=== PATIENT | male | born 1955 | race Caucasian/White ===

== ENCOUNTER 2017-03-28 19:29 | Emergency (ER) | payer BC ==
[~2017-03-28] VITALS: Ht 182.9 cm; Wt 78.2 kg
[2017-03-28 19:40] VITALS: BP 141/76; PULSE 116; RESP 20; TEMP 97.7; O2SAT 97
[2017-03-28] MEDS ORDERED: SODIUM CHLOR 0.9% 1000 ML INJ 1,000 ML IV SCH (20:00)
--- NOTE | 2017-03-28 20:04 | PD ---
HPI Chief Complaint: Fall Time Seen by Provider: 19:46 Travel History International Travel<30 days: No Contact w/Intl Traveler<30days: No Traveled to known affect area: No History of Present Illness HPI This 62-year-old male is complaining of RIGHT flank pain. He says that he had a fall on Saturday where he fell backwards and hit the area toilet. He has been having pain since then. Pain is quite severe. It is aggravated by movement. He thinks he did notice some dark urine right after the injury. He has a history of atrial fibrillation and is on Eliquis and amiodarone. The pain is aggravated by breathing as well as movement. The pain is quite severe PFSH Past Medical History Hx Anticoagulant Therapy: Yes Cardiovascular Problems: Yes (a- fib) Diminished Hearing: No Immunizations Current: Yes Tetanus Vaccination: Unknown Influenza Vaccination: No Social History Alcohol Use: Yes Tobacco Use: No Substance Use: No Allergies-Medications (Allergen,Severity, Reaction): Coded Allergies: No Known Allergies (Unverified , 03/28/17) Reported Meds & Prescriptions Reported Meds & Active Scripts Active Reported Diltiazem (Diltiazem HCl) 30 Mg Tab 30 Mg PO DAILY Metoprolol Succinate ER 24 HR (Metoprolol Succinate) 25 Mg Tab 12.5 Mg PO BID Amiodarone (Amiodarone HCl) 100 Mg Tab 50 Mg PO DAILY Eliquis (Apixaban) 5 Mg Tab 5 Mg PO BID Review of Systems General / Constitutional: No: Fever, Chills Eyes: No: Diploplia, Blurred Vision HENT: No: Headaches, Vertigo Cardiovascular: No: Chest Pain or Discomfort, Palpitations Respiratory: Positive: Shortness of Breath, No: Cough Gastrointestinal: No: Nausea, Vomiting Genitourinary: Positive: Hematuria, Flank Pain Musculoskeletal: No: Myalgias Skin: No Rash Neurologic: No: Weakness Physical Exam Narrative GENERAL: Well-developed male. He is quite uncomfortable with this pain SKIN: Focused skin assessment warm/dry. HEAD: Atraumatic. Normocephalic. EYES: Pupils equal and round. No scleral icterus. No injection or drainage. ENT: No nasal bleeding or discharge. Mucous membranes pink and moist. NECK: Trachea midline. No JVD. CARDIOVASCULAR: Regular rate and rhythm. No murmur appreciated. RESPIRATORY: No accessory muscle use. Clear to auscultation. Breath sounds equal bilaterally. There is tenderness in the right lower ribs GASTROINTESTINAL: Abdomen soft, non-tender, nondistended. Hepatic and splenic margins not palpable. (There is tenderness in the right flank area. There is no midline back tenderness MUSCULOSKELETAL: No obvious deformities. No clubbing. No cyanosis. No edema. NEUROLOGICAL: Awake and alert. No obvious cranial nerve deficits. Motor grossly within normal limits. Normal speech. PSYCHIATRIC: Appropriate mood and affect; insight and judgment normal. Data Data Last Documented VS Vital Signs Date Time Temp Pulse Resp B/P Pulse Ox O2 Delivery O2 Flow Rate FiO2 03/28/17 21:11 106 18 140/84 97 Room Air 03/28/17 19:40 97.7 Orders Complete Blood Count With Diff (03/28/17 19:56) Basic Metabolic Panel (Bmp) (03/28/17 19:56) Urinalysis - C+S If Indicated (03/28/17 19:56) Chest, Single Ap (03/28/17 19:56) Ct Abd/Pel W Iv Contrast(Rout) (03/28/17 19:56) Sodium Chlor 0.9% 1000 Ml Inj (Ns 1000 M (03/28/17 20:00) Labs Laboratory Tests Test 03/28/17 20:20 White Blood Count 8.4 TH/MM3 Red Blood Count 4.60 MIL/MM3 Hemoglobin 15.5 GM/DL Hematocrit 46.4 % Mean Corpuscular Volume 101.1 FL Mean Corpuscular Hemoglobin 33.6 PG Mean Corpuscular Hemoglobin 33.3 % Concent Red Cell Distribution Width 12.2 % Platelet Count 188 TH/MM3 Mean Platelet Volume 8.1 FL Neutrophils (%) (Auto) 75.1 % Lymphocytes (%) (Auto) 14.5 % Monocytes (%) (Auto) 9.1 % Eosinophils (%) (Auto) 0.8 % Basophils (%) (Auto) 0.5 % Neutrophils # (Auto) 6.3 TH/MM3 Lymphocytes # (Auto) 1.2 TH/MM3 Monocytes # (Auto) 0.8 TH/MM3 Eosinophils # (Auto) 0.1 TH/MM3 Basophils # (Auto) 0.0 TH/MM3 CBC Comment DIFF FINAL Differential Comment Sodium Level 139 MEQ/L Potassium Level 4.3 MEQ/L Chloride Level 101 MEQ/L Carbon Dioxide Level 26.5 MEQ/L Anion Gap 12 MEQ/L Blood Urea Nitrogen 17 MG/DL Creatinine 1.60 MG/DL Estimat Glomerular Filtration 44 ML/MIN Rate Random Glucose 183 MG/DL Calcium Level 9.5 MG/DL [facility] Medical Decision Making Medical Screen Exam Complete: Yes Emergency Medical Condition: Yes Medical Record Reviewed: Yes Differential Diagnosis Differential includes chest wall contusion, rib fracture, renal injury Narrative Course Chest x-ray was read as negative. I did order a CT abdomen and pelvis to assess for possible renal injury. On the CT I do see a fracture of the medial aspect of the right 11th rib. Patient will be released with prescription for Lortab Diagnosis Primary Impression: Fracture, rib Qualified Code: S22.31XA - Closed fracture of one rib of right side, initial encounter Scripts Hydrocodone-Acetaminophen (Lortab)7.5-325 Mg Tab1 Tab PO Q4H PRN (PAIN) #30 TAB Ref 0 Prov:Ike Zacarias MD 03/28/17 Disposition: 01 DISCHARGE HOME Condition: Stable Ike Zacarias MD March 28, 2017 20:04
[2017-03-28 20:25] LABS: AUTOMATED NEUTROPHIL # 6.3 TH/MM3 (1.8-7.7); BASOPHIL % 0.5 % (0.0-2.0); EOSINOPHIL # 0.1 TH/MM3 (0-0.4); EOSINOPHIL % 0.8 % (0.0-4.0); HEMATOCRIT 46.4 % (39.0-51.0); LYMPH % 14.5 % (9.0-44.0); LYMPHOCYTE # 1.2 TH/MM3 (1.0-4.8); MEAN CELL VOLUME 101.1 FL (80.0-100.0); MEAN CORPUSCULAR HEMOGLOBIN 33.6 PG (27.0-34.0); MEAN CORPUSCULAR HGB CONC 33.3 % (32.0-36.0); MONO % 9.1 % (0.0-8.0); NEUT % 75.1 % (16.0-70.0); PLATELET COUNT 188 TH/MM3 (150-450); RED CELL DISTRIBUTION WIDTH 12.2 % (11.6-17.2); WHITE BLOOD COUNT 8.4 TH/MM3 (4.0-11.0)
--- NOTE | 2017-03-28 20:30 | RADHPO ---
EXAM DATE/TIME: 03/28/2017 20:08 [facility] COMPARISON: No previous studies available for comparison. INDICATIONS : Patient fell getting out of the shower on Saturday and has had right lower rib pain since. He also sta stefania he has been short of breath and urinating blood. MEDICAL HISTORY : None. SURGICAL HISTORY : None. ENCOUNTER: Initial ACUITY: 2 days PAIN SCORE: 9/10 LOCATION: Right Ribs. FINDINGS: A single view of the chest demonstrates the lungs to be symmetrically aerated without evidence of mas s, infiltrate or effusion. The cardiomediastinal contours are unremarkable. Osseous structures are intact. CONCLUSION: No acute disease. Catracho Bryan MD on March 28, 2017 at 20:27 Board Certified Radiologist. This report was verified electronically.
[2017-03-28 20:33] LABS: HEMO FLAGS DIFF FINAL; POTASSIUM 4.3 MEQ/L (3.5-5.1)
[2017-03-28] MEDS ORDERED: APIX5TAB PO (20:33)
[2017-03-28] MEDS ORDERED: AMIO0.1T PO (20:33)
[2017-03-28] MEDS ORDERED: METO25TA6 PO (20:33)
[2017-03-28] MEDS ORDERED: DILT30TA PO (20:33)
[2017-03-28 20:36] LABS: BICARBONATE 26.5 MEQ/L (21.0-32.0)
[2017-03-28 21:11] VITALS: BP 140/84; PULSE 106; RESP 18; O2SAT 97
--- NOTE | 2017-03-28 21:23 | RADHPO ---
EXAM DATE/TIME: 03/28/2017 20:53 [facility] COMPARISON: No previous studies available for comparison. INDICATIONS : Fall two days ago. Right sided flank pain since. IV CONTRAST: 95 cc Omnipaque 350 (iohexol) IV ORAL CONTRAST: No oral contrast ingested. RADIATION DOSE: 11.68 CTDIvol (mGy) MEDICAL HISTORY : A-fib. SURGICAL HISTORY : None. ENCOUNTER: Initial ACUITY: 2 days PAIN SCALE: 7/10 LOCATION: Right flank TECHNIQUE: Volumetric scanning of the abdomen and pelvis was performed. Using automated exposure control and ad justment of the mA and/or kV according to patient size, radiation dose was kept as low as reasonably achievable to obtain optimal diagnostic quality images. FINDINGS: LOWER LUNGS: There is suspected contusion or atelectasis in the posterior right lung base. LIVER: There is decreased attenuation to the liver without lesion. There is no dilation of the biliary tree . No calcified gallstones. SPLEEN: Normal size without lesion. PANCREAS: Within normal limits. KIDNEYS: Normal in size and shape. There is no solid mass, stone or hydronephrosis. Small subcentimeter right renal cysts are seen. There is minimal symmetric perinephric stranding which is likely chronic. ADRENAL GLANDS: Within normal limits. VASCULAR: There is no aortic aneurysm. BOWEL/MESENTERY: The stomach, small bowel, and colon demonstrate no acute abnormality. There is no free intraperitone al air or fluid. ABDOMINAL WALL: Within normal limits. RETROPERITONEUM: There is no lymphadenopathy. BLADDER: No wall thickening or mass. REPRODUCTIVE: Prostatic calcifications are seen. INGUINAL: There is no lymphadenopathy or hernia. MUSCULOSKELETAL: There is a fracture of the posterior medial right 11th rib. CONCLUSION: 1. Right 11th rib fracture. 2. Contusion or atelectasis at the right lung base. 3. Hepatic steatosis. Catracho Bryan MD on March 28, 2017 at 21:15 Board Certified Radiologist. This report was verified electronically.
[2017-03-28] MEDS ORDERED: HYDR-3534 PO (21:39)
[2017-03-28 21:47] VITALS: BP 140/84
[2017-03-28] MEDS ORDERED: IOHEXOL 350 MG/ML 10 ML VIAL (for RAD DIAG) IV ONE (22:04)
== END 2017-03-28 21:51 | disposition home or self-care (01) ==
LOC: PHED 19:29
DX: S22.31XA Fracture of one rib, right side, initial encounter for closed fracture (principal); I48.91 Unspecified atrial fibrillation; Z79.01 Long term (current) use of anticoagulants; W18.30XA Fall on same level, unspecified, initial encounter; Y93.9 Activity, unspecified; Y92.002 Bathroom of unspecified non-institutional (private) residence as the place of occurrence of the external cause; Y99.8 Other external cause status
CPT/HCPCS: 71010; 74177; 80048; 85025; 96360; 99284; J7030; Q9967

== ENCOUNTER 2018-01-13 11:22 | Emergency (ER) | payer BC ==
[~2018-01-13] VITALS: Ht 182.9 cm; Wt 82.6 kg
[~2018-01-13 11:22] MED LIST: AMIO0.1T PO; APIX5TAB PO; DILT30TA PO; HYDR-3534 PO; METO1TAB42 PO
[2018-01-13 11:34] VITALS: BP 93/63; PULSE 117; RESP 16; TEMP 98.3; O2SAT 98
[2018-01-13] MEDS ORDERED: SODIUM CHLORIDE 0.9% FLUSH 10 ML FLUSH IV FLUSH PRN (13:15)
--- NOTE | 2018-01-13 13:20 | PD ---
HPI Chief Complaint: Complaint Time Seen by Provider: 13:05 Travel History International Travel<30 days: No Contact w/Intl Traveler<30days: No Traveled to known affect area: No History of Present Illness HPI 62-year-old male with history of A. fib on Eliquis, here for evaluation of decreased urinary output over the last 4 days. Patient reports that he wakes up several times at night feeling as though he needs to urinate, however only produces a very tiny amount. He denies abdominal pain. No dysuria. No hematuria. No flank pain. Reports that he was was on amiodarone, however this was discontinued 2 weeks ago because his LFTs became elevated and he had hepatic steatosis on ultrasound. Patient has noted some generalized weakness and fatigue as well. No fevers. PFSH Past Medical History Hx Anticoagulant Therapy: Yes Cardiovascular Problems: Yes (a- fib) Diminished Hearing: No Immunizations Current: Yes Social History Alcohol Use: Yes Tobacco Use: No Substance Use: No Allergies-Medications (Allergen,Severity, Reaction): Coded Allergies: No Known Allergies (Unverified Adverse Reaction, Unknown, 01/13/18) Reported Meds & Prescriptions Reported Meds & Active Scripts Active Reported Hydrochlorothiazide 12.5 Mg Cap 12.5 Mg PO DAILY Diltiazem (Diltiazem HCl) 30 Mg Tab 120 Mg PO DAILY Metoprolol Succinate ER 24 HR (Metoprolol Succinate) 25 Mg Tab 50 Mg PO TID Eliquis (Apixaban) 5 Mg Tab 5 Mg PO BID Review of Systems Except as stated in HPI: all other systems reviewed are Neg Physical Exam Narrative GENERAL: Well-developed, well-nourished, comfortable, no apparent distress. SKIN: Focused skin assessment warm/dry. No rash. No pallor. HEAD: Atraumatic. Normocephalic. EYES: Pupils equal and round. No scleral icterus. No injection or drainage. ENT: Mucous membranes pink and moist. NECK: Trachea midline. No JVD. CARDIOVASCULAR: Regular rate and rhythm. RESPIRATORY: No accessory muscle use. Clear to auscultation. Breath sounds equal bilaterally. GASTROINTESTINAL: Abdomen soft, non-tender, nondistended. MUSCULOSKELETAL: No obvious deformities. No clubbing. No cyanosis. No edema. NEUROLOGICAL: Awake and alert. No obvious cranial nerve deficits. Motor grossly within normal limits. Normal speech. PSYCHIATRIC: Appropriate mood and affect; insight and judgment normal. Data Data Last Documented VS Vital Signs Date Time Temp Pulse Resp B/P (MAP) Pulse Ox O2 Delivery O2 Flow Rate FiO2 01/13/18 13:33 96 01/13/18 13:33 116 20 110/85 (93) 01/13/18 11:34 98.3 Orders Orders Urinalysis - C+S If Indicated (01/13/18 11:38) Complete Blood Count With Diff (01/13/18 13:15) Comprehensive Metabolic Panel (01/13/18 13:15) Prothrombin Time / Inr (Pt) (01/13/18 13:15) Act Partial Throm Time (Ptt) (01/13/18 13:15) Iv Access Insert/Monitor (01/13/18 13:15) Ecg Monitoring (01/13/18 13:15) Oximetry (01/13/18 13:15) Sodium Chloride 0.9% Flush (Ns Flush) (01/13/18 13:15) Sodium Chlor 0.9% 1000 Ml Inj (Ns 1000 M (01/13/18 13:30) Urine Culture (01/13/18 13:30) Ceftriaxone Inj (Rocephin Inj) (01/13/18 14:30) Labs Laboratory Tests Test 01/13/18 13:30 White Blood Count 7.5 TH/MM3 Red Blood Count 4.36 MIL/MM3 Hemoglobin 14.4 GM/DL Hematocrit 42.9 % Mean Corpuscular Volume 98.5 FL Mean Corpuscular Hemoglobin 33.1 PG Mean Corpuscular Hemoglobin Concent 33.7 % Red Cell Distribution Width 12.6 % Platelet Count 414 TH/MM3 Mean Platelet Volume 7.7 FL Neutrophils (%) (Auto) 67.9 % Lymphocytes (%) (Auto) 19.7 % Monocytes (%) (Auto) 9.8 % Eosinophils (%) (Auto) 1.8 % Basophils (%) (Auto) 0.8 % Neutrophils # (Auto) 5.1 TH/MM3 Lymphocytes # (Auto) 1.5 TH/MM3 Monocytes # (Auto) 0.7 TH/MM3 Eosinophils # (Auto) 0.1 TH/MM3 Basophils # (Auto) 0.1 TH/MM3 CBC Comment DIFF FINAL Differential Comment Prothrombin Time 11.2 SEC Prothromb Time International Ratio 1.1 RATIO Activated Partial Thromboplast Time 28.0 SEC Urine Color ROSALINA Urine Turbidity SLIGHT Urine pH 5.5 Urine Specific Ajo 1.028 Urine Protein 30 mg/dL Urine Glucose (UA) NEG mg/dL Urine Ketones 15 mg/dL Urine Occult Blood NEG Urine Nitrite NEG Urine Bilirubin NEG Urine Leukocyte Esterase SMALL Urine RBC 0-3 /hpf Urine WBC 20-24 /hpf Urine Squamous Epithelial Cells 6-8 /hpf Urine Bacteria RARE /hpf Urine Hyaline Casts 3-5 /lpf Microscopic Urinalysis Comment CULTURE INDICATED Blood Urea Nitrogen 15 MG/DL Creatinine 1.70 MG/DL Random Glucose 110 MG/DL Total Protein 7.9 GM/DL Albumin 3.7 GM/DL Calcium Level 9.7 MG/DL Alkaline Phosphatase 68 U/L Aspartate Amino Transf (AST/SGOT) 25 U/L Alanine Aminotransferase (ALT/SGPT) 30 U/L Total Bilirubin 0.7 MG/DL Sodium Level 135 MEQ/L Potassium Level 3.9 MEQ/L Chloride Level 98 MEQ/L Carbon Dioxide Level 29.6 MEQ/L Anion Gap 7 MEQ/L Estimat Glomerular Filtration Rate 41 ML/MIN [facility] Medical Decision Making Medical Screen Exam Complete: Yes Emergency Medical Condition: Yes Differential Diagnosis Urinary retention, instructed uropathy, acute renal failure Narrative Course Initial vital signs show heart rate 117, blood pressure 93/63, pulse ox 98% on room air, oral temp of 98.3F. Repeat vital signs show heart rate 65, blood pressure 110/85. Bedside transabdominal ultrasound performed by me shows an empty bladder. CBC: WBC 7.5, hemoglobin 14.4, hematocrit 42.9, platelets 414. CMP is remarkable for creatinine 1.7, GFR 41. Creatinine in January of last year was 1.6 with a GFR 40. UA: 30 protein, 15 ketones, small leukocyte esterase, 20-24 WBCs, rare bacteria, 6- 8 epithelial cells. Patient was made aware of all findings. He is resting comfortably. I discussed the case with his primary care physician Dr. Best who has a BMP performed from January 2017 and shows a creatinine of 1.6. Again a bedside ultrasound performed by me shows that the patient's bladder is empty. He likely has prostatitis and was given a dose of 1 g of IV Rocephin here in the emergency department. Given renal insufficiency I am hesitant to start patient on either Cipro or Bactrim. I will start him on Ceftin which will be switched if culture and sensitivities show resistance. States that he has not been sexually active in over [address] Best would like the patient follow-up in her office in one week. Patient advised on when to return to the emergency department. He verbalizes understanding and agreement with plan. Diagnosis Primary Impression: Prostatitis Qualified Codes: N41.0 - Acute prostatitis Referrals: Barrera Holm MD 3 days Urologist Primary Care Physician 3 days Additional Instructions: Follow-up with your primary care physician this week. Follow-up with urologist Dr. Holm or a urologist of your choice this week. Return to the emergency room if worsening symptoms or any other concerns as discussed. Scripts Cefuroxime (Ceftin) 250 Mg Tab 500 MG PO BID for 14 Days, #56 TAB Prov: Eduardo Lara MD 01/13/18 Disposition: 01 DISCHARGE HOME Condition: Stable Eduardo Lara MD Jan 13, 2018 13:20
[2018-01-13] MEDS ORDERED: HYDR12.57 PO (13:22)
[2018-01-13] MEDS ORDERED: SODIUM CHLOR 0.9% 1000 ML INJ 1,000 ML IV ONE (13:30)
[2018-01-13 13:33] VITALS: BP 110/85; PULSE 116; RESP 20; O2SAT 95; O2SAT 96
[2018-01-13 13:42] LABS: BLOOD, URINE NEG (NEG); GLUCOSE,URINE NEG (NEG); KETONE, URINE 15 mg/dL (NEG); NITRITE,URINE NEG (NEG); PH, URINE 5.5 (5.0-8.5); URINE LEUKOCYTE ESTERASE SMALL (NEG)
[2018-01-13 13:44] LABS: AUTOMATED NEUTROPHIL # 5.1 TH/MM3 (1.8-7.7); BASOPHIL # 0.1 TH/MM3 (0-0.2); BASOPHIL % 0.8 % (0.0-2.0); EOSINOPHIL # 0.1 TH/MM3 (0-0.4); EOSINOPHIL % 1.8 % (0.0-4.0); HEMATOCRIT 42.9 % (39.0-51.0); HEMOGLOBIN 14.4 GM/DL (13.0-17.0); LYMPH % 19.7 % (9.0-44.0); LYMPHOCYTE # 1.5 TH/MM3 (1.0-4.8); MEAN CELL VOLUME 98.5 FL (80.0-100.0); MEAN CORPUSCULAR HEMOGLOBIN 33.1 PG (27.0-34.0); MEAN CORPUSCULAR HGB CONC 33.7 % (32.0-36.0); MEAN PLATELET VOLUME 7.7 FL (7.0-11.0); MONO % 9.8 % (0.0-8.0); MONOCYTE # 0.7 TH/MM3 (0-0.9); NEUT % 67.9 % (16.0-70.0); PLATELET COUNT 414 TH/MM3 (150-450); RED BLOOD COUNT 4.36 MIL/MM3 (4.50-5.90); RED CELL DISTRIBUTION WIDTH 12.6 % (11.6-17.2); WHITE BLOOD COUNT 7.5 TH/MM3 (4.0-11.0)
[2018-01-13 13:47] LABS: BILIRUBIN, URINE NEG (NEG); URINE COLOR AMBER (YELLW/STRAW)
[2018-01-13 13:48] LABS: BACTERIA, URINE RARE /hpf; RBC, URINE 0-3 /hpf (0-3)
[2018-01-13 13:56] LABS: CHLORIDE 98 MEQ/L (98-107); SODIUM (NA) 135 MEQ/L (136-145)
[2018-01-13 13:59] LABS: CALCIUM 9.7 MG/DL (8.5-10.1)
[2018-01-13 14:00] LABS: ALBUMIN 3.7 GM/DL (3.4-5.0); BICARBONATE 29.6 MEQ/L (21.0-32.0); BLOOD UREA NITROGEN 15 MG/DL (7-18); GLUCOSE,RANDOM 110 MG/DL (74-106); INTERNATIONAL NORMALIZED RATIO 1.1 RATIO; PROTHROMBIN TIME - PATIENT 11.2 SEC (9.8-11.6)
[2018-01-13 14:03] LABS: ALT (GPT) 30 U/L (12-78); AST (GOT) 25 U/L (15-37); GLOMERULAR FILTRATION RATE 41 ML/MIN (>89)
[2018-01-13 14:04] LABS: TOTAL BILIRUBIN ADULT 0.7 MG/DL (0.2-1.0); TOTAL PROTEIN 7.9 GM/DL (6.4-8.2)
[2018-01-13 14:06] LABS: ALKALINE PHOSPHATASE 68 U/L (45-117)
[2018-01-13 14:30] VITALS: BP 106/86; PULSE 58; RESP 16; O2SAT 96
[2018-01-13] MEDS ORDERED: cefTRIAXone INJ 1,000 MG in SODIUM CHLORIDE 0.9% INJ 100 ML IV ONE (14:30)
[2018-01-13] MEDS ORDERED: CEFU1TAB18 PO (14:53)
[2018-01-13 15:21] VITALS: BP 103/78; PULSE 57; RESP 16; O2SAT 98
== END 2018-01-13 15:58 | disposition home or self-care (01) ==
LOC: PHED 11:22
DX: N41.0 Acute prostatitis (principal); I48.91 Unspecified atrial fibrillation
CPT/HCPCS: 80053; 81001; 85025; 85610; 85730; 87086; 96361; 96365; 99284; J0696; J7030